=== PATIENT | male | born 1990 | race Hispanic/Latino ===

== ENCOUNTER 2016-10-09 22:12 | Emergency (ER) | payer OTHER ==
[~2016-10-09] VITALS: Ht 177.8 cm; Wt 172.4 kg
--- NOTE | 2016-10-10 00:20 | ED CARDIAC/CP/PALPITATIONS ---
History of Present Illness General Chief Complaint: Chest Pain Stated Complaint: CP Source: patient Exam Limitations: no limitations Vital Signs & Intake/Output Vital Signs & Intake/Output Vital Signs Date Time Temp Pulse Resp B/P Pulse O2 O2 Flow FiO2 Ox Delivery Rate 10/10 0534 98.2 70 20 133/73 97 Room Air 10/10 0334 98.0 79 20 170/81 98 Room Air 10/10 0055 Room Air 10/09 2223 98.4 75 20 148/82 98 Room Air ED Intake and Output 10/10 0000 10/09 1200 Intake Total Output Total Balance Patient 380 lb Weight Allergies Coded Allergies: No Known Drug Allergies (10/09/16) Triage Note: PT TO ED C/O LEFT CHEST PAIN FOR 2 DAYS. WORSE WITH DEEP INSPIRATION. STATES SMOKED 2 CIGARETTES IN A ROW TODAY AND THEN LEFT ARM BECAME "HEAVY" PT IS A SOME DAY SMOKER. DENIES N/V HAD BLOOD WORK DONE AT [place] YESTERDAY FOR PHYSICAL SCHEDULED FOR TOMORROW Triage Nurses Notes Reviewed? yes Onset: Abrupt Duration: day(s): (3) Timing: recent history Quality/Severity: moderate Location: left upper chest Radiation: no radiation Activities at Onset: none HPI: This is a 26 year old male with morbid obesity who presents to the ER with left sided upper chest pain since Monday. Symptoms have been constant. Some associated shortenss of breath and palpiatations. Pain worsens with deep inspiration. No recent immobilization or trauma. Posite family history of PE in mother and grandmother. Past History Travel History Traveled to [place] past 21 day No Medical History Any Pertinent Medical History? see below for history Neurological: NONE EENT: NONE Cardiovascular: NONE Respiratory: NONE Gastrointestinal: NONE Hepatic: NONE Renal: NONE Musculoskeletal: NONE Psychiatric: NONE Endocrine: NONE Surgical History Surgical History: none Psychosocial History What is your primary language [place] Tobacco Use: Current Not Daily ETOH Use: occasional use Illicit Drug Use: marijuana Family History Comment: GRANDMOTHER - PE MOTHER - PE Hx Contributory? No Review of Systems Review of Systems Constitutional: Denies: chills, fever. EENTM: Reports: no symptoms. Respiratory: Denies: cough, short of breath, sputum production. Cardiovascular: Reports: chest pain, palpitations. GI: Denies: abdominal pain. Genitourinary: Denies: discharge, dysuria. Musculoskeletal: Reports: no symptoms. Skin: Reports: no symptoms. Neurological/Psychological: Reports: no symptoms. Hematologic/Endocrine: Denies: bruising, bleeding, polyuria, polydipsia. Immunologic/Allergic: Denies: splenectomy. All Other Systems: Reviewed and Negative Physical Exam Physical Exam General Appearance: well developed/nourished, alert, awake, mild distress, obese Head: atraumatic, normal appearance Eyes: Bilateral: normal appearance, PERRL, EOMI. Ears, Nose, Throat: normal pharynx, normal ENT inspection Neck: normal inspection, supple, full range of motion Respiratory: normal breath sounds, chest non-tender, no respiratory distress Cardiovascular: regular rate/rhythm Peripheral Pulses: 2+ radial (R), 2+ radial (L) Gastrointestinal: normal bowel sounds, soft, non-tender, obese Back: normal inspection, normal range of motion Extremities: normal inspection, normal range of motion, no edema Neurologic/Psych: no motor/sensory deficits, awake, alert, oriented x 3 Skin: intact, normal color, warm/dry Core Measures ACS in differential dx? No Severe Sepsis Present: No Septic Shock Present: No Progress Differential Diagnosis: AMI, aortic dissection, costochondritis, musculoskeletal pain, myocarditis, pericarditis, pneumonia, pneumothorax, PSVT, pulmonary embolism, PUD/GERD, unstable angina Plan of Care: Orders Procedure Date/time Status TOTAL IRON BINDING CAPACITY 10/10 0048 Complete FERRITIN 10/10 0048 Complete SERUM IRON 10/10 0048 Complete Diagnostic Imaging: Viewed by Me: Radiology Read, CT Scan. Discussed w/RAD: Radiology Read, CT Scan. Radiology Impression: PATIENT: MARLON VANG PRESENT AGE: 26 PATIENT ACCOUNT NO: [id number] : 91 LOCATION: [facility] ORDERING PHYSICIAN: MEGHA MCINTOSH MD SERVICE DATE: 10/10/16 EXAM TYPE: CAT - CTA CHEST-PULMONARY EMBOLISM EXAMINATION: CT ANGIOGRAM OF THE CHEST WITH AND WITHOUT CONTRAST (CT PULMONARY ANGIOGRAM FOR PE) CLINICAL INFORMATION: Symptoms: LEFT SIDED CHEST PAIN/SOB COMPARISON: None TECHNIQUE: Prior to contrast administration, noncontrast localization images were obtained. Subsequently, multidetector volumetric imaging was performed from the thoracic inlet to below the diaphragms following the administration of 80 mL Optiray 350 intravenous contrast. No contrast reaction reported Sagittal, coronal, and MIP oblique sagittal reformatted images were obtained on the CT workstation, uploaded to PACS, and reviewed. Total exam dose-length product 626.68 mGy-cm FINDINGS: QUALITY OF STUDY/CONTRAST BOLUS: Satisfactory. PULMONARY ARTERIES: No central or segmental pulmonary emboli. THORACIC AORTA: No aneurysm or dissection. LUNG: No focal consolidation, nodules or masses. PLEURA: No pleural effusion or pneumothorax. MEDIASTINUM: Normal heart size. No pericardial effusion. No hilar or mediastinal lymphadenopathy. No evidence of septal bowing or right heart strain. CHEST WALL/AXILLA: No axillary or internal mammary lymphadenopathy. OSSEOUS STRUCTURES: No acute or suspicious osseous abnormality. UPPER ABDOMEN: Unremarkable. No reflux of contrast into the hepatic veins to suggest elevated right heart pressures. IMPRESSION: Normal CT of chest. No evidence of pulmonary embolism. VTE: negative DICTATED BY: CHRIS BROWN MD DATE/ TIME DICTATED:10/10/16618 TOBACCO EDUCATOR:ALVAREZ DATE/TIME TRANSCRIBED: 10/10/16618 CONFIDENTIAL, DO NOT COPY WITHOUT APPROPRIATE AUTHORIZATION. < Electronically signed in Other Vendor System> SIGNED BY: CHRIS BROWN MD 624 CXR Impression: PATIENT: MARLON VANG PRESENT AGE: 26 PATIENT ACCOUNT NO: [id number] : 91 LOCATION: [facility] ORDERING PHYSICIAN: MEGHA MCINTOSH MD SERVICE DATE: 10/10/16 EXAM TYPE: RAD - XRY -CHEST XRAY, PA AND LATERAL EXAMINATION: XR CHEST CLINICAL INFORMATION: Left- sided chest pain. Palpitations. COMPARISON: None TECHNIQUE: 2 views of the chest were obtained. FINDINGS: No significant abnormality is noted involving the heart , lungs, mediastinum, bony thorax or soft tissues. IMPRESSION: Unremarkable examination. DICTATED BY: CHRIS BROWN MD DATE/TIME DICTATED:10/10/16123 TOBACCO EDUCATOR:ALVAREZ DATE/TIME TRANSCRIBED:10/10/16123 CONFIDENTIAL, DO NOT COPY WITHOUT APPROPRIATE AUTHORIZATION. <Electronically signed in Other Vendor System> SIGNED BY: CHRIS BROWN MD 10/10/16127 Initial ED EKG: NSR Rhythm Strip: normal sinus rhythm Departure Departure Time of Disposition: 628 Disposition: HOME OR SELF CARE Condition: Stable Clinical Impression Primary Impression: Chest pain Referrals: DAVIDSON GREEN APRN (PCP/Family) Additional Instructions: Take ibuprofen as needed for pain. Please follow-up with your primary care doctor in the office. Return to the emergency department for any changing or worsening symptoms. Departure Forms: Customer Survey General Discharge Information Critical Care Note Critical Care Note Critical Care Time: non-applicable
[2016-10-10 00:59] LABS: ABSOLUTE BASOPHIL COUNT 0 /CUMM (0.0-0.2); ABSOLUTE EOSINOPHIL COUNT 0.1 /CUMM (0.0-0.7); ABSOLUTE GRANULOCYTE CT 7.1 /CUMM (1.4-6.5); ABSOLUTE LYMPH COUNT 2.3 /CUMM (1.2-3.4); ABSOLUTE MONOCYTE COUNT 0.6 /CUMM (0.10-0.60); BASOPHIL % 0.3 % (0.0-2.0); EOSINOPHIL % 0.7 % (0-5); GRANULOCYTE % 70.1 % (42.2-75.2); HEMATOCRIT 40.6 % (42-52); MEAN CORPUSCULAR HGB 27.9 PG (27.0-31.0); MEAN CORPUSCULAR HGB CONC 33.2 G/DL (33.0-37.0); MEAN PLATELET VOLUME 8.1 FL (7.4-10.4); PLATELET COUNT 344 /CUMM (130-400); RBC DISTRIBUTION WIDTH 13.2 % (11.5-14.5); RED BLOOD CELL CT 4.84 /CUMM (4.70-6.10); WHITE BLOOD CELL COUNT 10.2 /CUMM (4.8-10.8)
--- NOTE | 2016-10-10 01:28 | RADIOLOGY REPORT ---
EXAMINATION: XR CHEST CLINICAL INFORMATION: Left-sided chest pain. Palpitations. COMPARISON: None TECHNIQUE: 2 views of the chest were obtained. FINDINGS: No significant abnormality is noted involving the heart, lungs, mediastinum, bony thorax or soft tissues. IMPRESSION: Unremarkable examination.
[2016-10-10 05:34] VITALS: BP 133/73
--- NOTE | 2016-10-10 06:25 | CT SCAN REPORT ---
EXAMINATION: CT ANGIOGRAM OF THE CHEST WITH AND WITHOUT CONTRAST (CT PULMONARY ANGIOGRAM FOR PE) CLINICAL INFORMATION: Symptoms: LEFT SIDED CHEST PAIN/SOB COMPARISON: None TECHNIQUE: Prior to contrast administration, noncontrast localization images were obtained. Subsequently, multidetector volumetric imaging was performed from the thoracic inlet to below the diaphragms following the administration of 80 mL Optiray 350 intravenous contrast. No contrast reaction reported Sagittal, coronal, and MIP oblique sagittal reformatted images were obtained on the CT workstation, uploaded to PACS, and reviewed. Total exam dose-length product 626.68 mGy-cm FINDINGS: QUALITY OF STUDY/CONTRAST BOLUS: Satisfactory. PULMONARY ARTERIES: No central or segmental pulmonary emboli. THORACIC AORTA: No aneurysm or dissection. LUNG: No focal consolidation, nodules or masses. PLEURA: No pleural effusion or pneumothorax. MEDIASTINUM: Normal heart size. No pericardial effusion. No hilar or mediastinal lymphadenopathy. No evidence of septal bowing or right heart strain. CHEST WALL/AXILLA: No axillary or internal mammary lymphadenopathy. OSSEOUS STRUCTURES: No acute or suspicious osseous abnormality. UPPER ABDOMEN: Unremarkable. No reflux of contrast into the hepatic veins to suggest elevated right heart pressures. IMPRESSION: Normal CT of chest. No evidence of pulmonary embolism. VTE: negative
--- NOTE | 2016-10-10 07:26 | CT SCAN REPORT ---
EXAMINATION: CT LIMITED OR FOLLOWUP CLINICAL INFORMATION: Evaluate for PE. COMPARISON: Radiograph 10/10/2016. TECHNIQUE: Attempt was made at a CT angiogram. The IVC was not functioning at this time. The patient was returned to the emergency department for placement of a new line. Examination was not completed. DLP: 94 mGy-cm FINDINGS: Examination not completed. Timing slices performed demonstrating clear lungs at this level. The sofa inspector images demonstrate clear lungs. IMPRESSION: Examination not completed. Patient returned to the emergency department for new line placement.
== END 2016-10-10 06:38 ==
LOC: ERH 22:12
PROVIDERS: Emergency Medicine
DX: R07.9 Chest pain, unspecified (principal)
CPT/HCPCS: 93005; 93010; J1885